=== PATIENT | female | born 1985 | race African-American/Black ===

== ENCOUNTER → 2020-12-19 | Outpatient (CLI) | payer OTHER ==
--- NOTE | 2020-12-21 13:27 | TST ---
[place] [address] TREADMILL STRESS TEST Name: RAMONA MORRIS Room: [facility]#: [id number] Admission: 12/19/20 Attend Phys: Physician not on s Discharge: Date of : 81 Date of Service: 12/20/20 1638 Report #: [id number] THIS REPORT FOR: cc: Sheron Joyner Tara DO Liston, Michael J. MD [facility] ~ DOC #: [id number] Gustavo Demarco MD DATE OF SERVICE: 12/19/2020 STRESS TEST REPORT STUDY: Standard Marquis protocol exercise stress test. INDICATION: Presurgical evaluation. PRIOR CARDIAC HISTORY: None. CARDIAC MEDICATIONS: None. The patient exercised per standard Marquis protocol for a total of 10 minutes and 21 seconds achieving 99% of the maximum predicted heart rate and an energy expenditure of 12.39 METs. The baseline blood pressure was 120/78 with a pulse rate of 69 beats per minute. At peak exercise, the blood pressure was 160/79 mmHg with a peak stress heart rate of 182 beats per minute. In recovery, the blood pressure was 125/70 mmHg with a recovery heart rate of 98 beats per minute. The patient tolerated standard Marquis protocol exercise without significant cardiac symptoms. Exercise was stopped due to attainment of target heart rate. The baseline 12-lead EKG shows sinus rhythm without significant ST segment or T-wave abnormality. EKGs obtained during and post-exercise shows sinus rhythm and sinus tachycardia with no significant ST segment or T-wave changes when compared to baseline. Recovery phase was unremarkable. IMPRESSION: 1. Clinical response: Nonischemic. 2. Electrocardiographic response: Nonischemic. CONCLUSION: This standard Marquis protocol exercise stress test shows no clinical or EKG evidence to suggest stress-induced ischemia. This is a low risk study. Gustavo Demarco MD [facility] [address] TREADMILL STRESS TEST Name: RAMONA MORRIS Room: [facility]#: [id number] Admission: 12/19/20 Attend Phys: Physician not on s Discharge: Date of : 81 Date of Service: 12/20/20 1638 Report #: [id number] <ELECTRONICALLY SIGNED> By: Gustavo Demarco MD, FACC 12/21/20 1327 1638 0518 Gustavo Demarco MD, FACC /nt
== END ==
LOC: M.CRD 15:00
DX: Z01.818 Encounter for other preprocedural examination (principal); R94.31 Abnormal electrocardiogram [ECG] [EKG]

== ENCOUNTER 2021-02-26 00:23 | Emergency (ER) | payer OTHER ==
[~2021-02-26] VITALS: Ht 167.6 cm; Wt 79.4 kg
[2021-02-26 01:21] LABS: ABSOLUTE BASOPHILS 0.1 thou/uL (0.0-0.2); ABSOLUTE EOSINOPHILS 0.4 thou/uL (0.0-0.7); ABSOLUTE LYMPHOCYTES 2.3 thou/uL (0.8-5.3); ABSOLUTE MONOCYTES 0.7 thou/uL (0.0-1.2); ABSOLUTE NEUTROPHILS 2.8 thou/uL (1.6-8.1); BASOPHILS 1.1 %; EOSINOPHILS 5.7 %; HEMOGLOBIN 12.4 gm/dL (12.0-15.0); LYMPHOCYTES 36.7 %; MCH 31.2 pg (26.0-34.0); MCHC 33.4 g/dL (28.0-37.0); MCV 93.2 fL (80.0-100.0); MONOCYTES 11.3 %; MPV 7.1 fl. (7.2-11.1); NUCLEATED RBCS 0 /100WBC; PLATELET COUNT* 542 thou/uL (150-400); POLYS 45.2 %; RBC 3.97 mil/uL (4.20-5.00); RDW-CV 13.1 % (10.5-14.5); WBC 6.3 thou/uL (4.0-11.0)
[2021-02-26 01:34] LABS: CALCIUM 9.6 mg/dL (8.5-10.1); CREATININE 0.9 mg/dL (0.6-1.3); POTASSIUM 3.6 mmol/L (3.5-5.1)
[2021-02-26 01:38] LABS: ALBUMIN 4.3 g/dL (3.4-5.0); TOTAL BILIRUBIN 0.4 mg/dL (<0.1-1.0); TOTAL PROTEIN 8.2 g/dL (6.4-8.2)
[2021-02-26 02:41] LABS: URINE BILIRUBIN NEGATIVE (Negative); URINE BLOOD NEGATIVE (Negative); URINE CLARITY CLEAR; URINE COLOR YELLOW; URINE GLUCOSE-RANDOM NEGATIVE (Negative); URINE KETONES NEGATIVE (Negative); URINE LEUKOCYTES-REFLEX NEGATIVE (Negative); URINE NITRITE-REFLEX NEGATIVE (Negative); URINE PROTEIN NEGATIVE (Negative); URINE SPECIFIC GRAVITY 1.015 (1.005-1.030); URINE UROBILINOGEN 0.2 E.U./dl (0.2-1.0)
[2021-02-26 05:15] VITALS: BP 115/60
--- NOTE | 2021-02-26 10:12 | EKG ---
[place] [address] ELECTROCARDIOGRAM REPORT Name: RAMONA MORRIS Room: [facility]#: [id number] Admission: 02/26/21 Attend Phys: Discharge: 02/26/21 Date of : 81 Date of Service: 02/26/21 0029 Report #: [id number] THIS REPORT FOR: //name// [facility] [place] ED Test Date: 2021-02-26 Test Time: 00:29:43 Pat Name: RAMONA MORRIS Department: Room: Gender: [employer]: [place] : 1985 Requested By: Nathaly Dupont Order Number: [id number] MD: Pedro Livingston Measurements Intervals Cactus Rate: 75 P: 39 WA: 160 QRS: 36 QRSD: 107 T: 37 QT: 370 QTc: 414 Interpretive Statements Sinus rhythm RSR' in V1 or V2, probably normal variant No previous ECG available for comparison Electronically Signed On 02-26-2021 10:12:28 CDT by Pedro Livingston [email or web address] <ELECTRONICALLY SIGNED> By: Pedro Livingston MD, [facility] 02/26/21 1012 0029 0029 Pedro Livingston MD, [facility] /EPI
== END 2021-02-26 05:15 | disposition home or self-care (01) ==
LOC: M.ERS 00:23
PROVIDERS: Personal Emergency Response Attendant
DX: R06.02 Shortness of breath (principal); Z48.00 Encounter for change or removal of nonsurgical wound dressing